=== PATIENT | male | born 2000 | race Hispanic/Latino ===

== ENCOUNTER 2023-01-03 22:12 | Emergency (ER) | payer SELFPAY ==
[~2023-01-03] VITALS: Ht 177.8 cm; Wt 136.1 kg
[2023-01-03] MEDS ORDERED: MEDROL4 M2 PO (22:22)
[2023-01-03] MEDS ORDERED: AMOX TR-K CLV1 EAC2 PO (22:22)
[2023-01-03 22:29] VITALS: BP 167/101
[2023-01-03] MEDS ORDERED: ACETAMINOPHEN 325 MG TAB PO ONE (22:30)
[2023-01-03] MEDS ORDERED: ACETAMINOPHEN 325 MG TAB ONE (22:38)
== END 2023-01-03 22:38 | disposition home or self-care (01) ==
LOC: ER 22:25
DX: R50.9 Fever, unspecified (principal); J32.9 Chronic sinusitis, unspecified
CPT/HCPCS: 99282